=== PATIENT | female | born 1960 | race Caucasian/White ===

== ENCOUNTER → 2016-08-03 | Outpatient (CLI) | payer OTHER ==
--- NOTE | 2016-08-03 08:22 | CT ---
EXAMINATION TYPE: CT abdomen w con DATE OF EXAM: 08/03/2016 7:39 AM COMPARISON: NONE HISTORY: 56-year-old female with upper Abdomen Pain, epigastric pain, elevated lipase. TECHNIQUE: Contiguous axial scanning of the abdomen following administration of 100 ml Omnipaque 300 IV contrast. Delayed images through the kidneys and coronal/sagittal reconstructions performed. CT DLP: 259.1 mGycm Automated exposure control for dose reduction was used. FINDINGS: The heart is normal size without pericardial effusion. There is either a small hiatal hernia or mild circumferential wall thickening of the lower esophagus. Correlate for any symptoms of esophagitis. Suggestion of mild emphysematous changes in the lower lungs without pleural effusion. Small amount of focal fat along the anterior falciform ligament. Otherwise, no focal liver lesion. No biliary ductal dilatation. The bile duct is mildly prominent at 6.6 mm but shows normal distal tapering. Gallbladder, adrenal glands, right kidney, and spleen appear within normal limits. Tiny subcentimeter hypodensity anterior left kidney seen on the delayed kidney images, too small for accurate CT characterization, likely a tiny cyst. There is slight prominence to the main pancreatic duct without abnormal dilatation. No significant garrett rrounding peripancreatic inflammation is identified. Scattered nonenlarged and borderline enlarged mesenteric lymph nodes are present, mildly enlarged anabela ng the central mesenteric chain measuring up to 7 mm, for example, coronal image 20. No dilated small bowel, free fluid, or free air. There is liquid stool seen within the ascending colo n and also the descending colon. The pelvis is not imaged. Bones: No osseous destructive process. IMPRESSION: 1. EITHER A SMALL HIATAL HERNIA OR MILD CIRCUMFERENTIAL WALL THICKENING OF THE LOWER ESOPHAGUS; CORRE LATE FOR ANY SYMPTOMS OF ESOPHAGITIS. 2. MILDLY ENLARGED MESENTERIC LYMPH NODES MEASURING UP TO 7 MM. FINDINGS ARE PROBABLY REACTIVE/POST I NFLAMMATORY. CONSIDER 6 MONTH FOLLOW-UP TO ENSURE STABILITY/RESOLUTION . 3. THERE IS LIQUID STOOL SEEN THROUGHOUT THE COLON WHICH COULD REFLECT ENTERITIS.
== END | disposition home or self-care (01) ==
LOC: RADCTMAIN 06:45
PROVIDERS: ATTEND Family Medicine
DX: R10.13 Epigastric pain (principal); R79.89 Other specified abnormal findings of blood chemistry; R59.0 Localized enlarged lymph nodes
CPT/HCPCS: 74160; Q9967